=== PATIENT | female | born 1990 | race Hispanic/Latino ===

== ENCOUNTER 2020-01-25 12:18 | Outpatient (CLI) | payer OTHER ==
[2020-01-26 13:18] LABS: SARS-CoV-2 MS2 Positive; SARS-CoV-2 N Gene Positive; SARS-CoV-2 S Gene Positive; SARS-CoV-2 orf1ab Positive
== END 2020-01-25 12:19 | disposition home or self-care (01) ==
LOC: SCSLAB 12:18
PROVIDERS: ATTEND Family Medicine
DX: Z01.812 Encounter for preprocedural laboratory examination (principal); Z11.59 Encounter for screening for other viral diseases
CPT/HCPCS: 87635; U0003

== ENCOUNTER 2020-01-28 12:11 | Inpatient (IN) | payer MEDICAID, OTHER ==
[~2020-01-28 12:11] MED LIST: Bupivacaine/Epinephrine 0.25% 30 ML VIAL ONE
[2020-01-28] MEDS ORDERED: Ondansetron PF 4 MG/2 ML Vial IVP PRN (20:50)
[2020-01-28] MEDS ORDERED: Promethazine HCl 25 MG/ML VIAL IM PRN (20:50)
[2020-01-28] MEDS ORDERED: Lidocaine 1% (PF) 30 ML VIAL SC PRN (20:50)
[2020-01-28] MEDS ORDERED: Misoprostol 200 MCG TAB PR PRN (20:50)
[2020-01-28] MEDS ORDERED: NS w/ Oxytocin 10 units 500 ML IV SCH (20:50)
[2020-01-28] MEDS ORDERED: Methylergonovine 0.2 MG/ML VIAL IM PRN (20:50)
[2020-01-28] MEDS ORDERED: HYDROcodone/Acetaminophen 5/325 mg Tablet PO PRN (20:50)
[2020-01-28] MEDS ORDERED: Carboprost 250 MCG/ML AMP IM PRN (20:50)
[2020-01-28] MEDS ORDERED: NS / Oxytocin 40 units/1000ml 1,000 ML IV PRN (20:50)
[2020-01-28] MEDS ORDERED: hydrALAZINE 20 MG/ML VIAL SLOW IVP PRN (20:50)
[2020-01-28] MEDS ORDERED: Diphenoxylate HCl/Atropine Tablet PO PRN (20:50)
[2020-01-28] MEDS ORDERED: Ibuprofen 800 MG TAB PO PRN (20:50)
[2020-01-28] MEDS ORDERED: Penicillin G Potassium 5 MILL.UNITS in Sodium Chloride 0.9% 100 ML IVPB SCH (21:00)
[2020-01-28] MEDS ORDERED: Penicillin G Potassium 5 MILL.UNITS VIAL ONE (21:09)
[2020-01-28] MEDS ORDERED: Sodium Chloride 0.9% 100 ML ONE (21:10)
[2020-01-28 21:38] VITALS: BMI 35.5
[2020-01-28] MEDS: Lactated Ringer's 1,000 ML IV SCH (21:50)
[2020-01-28] MEDS: Misoprostol 100 MCG TAB VAG SCH (22:05)
[2020-01-28 22:24] LABS: Hemoglobin 12.5 g/dL (12.0-16.0); Mean Corpuscular Hemoglobin 31.1 pg (27.0-31.0); Mean Corpuscular Volume 91.4 fL (78.0-98.0); Mean Platelet Volume 11.4 fL (7.4-10.4); Platelet Count 119 thou/uL (130-400); RBC Distribution Width 12.2 % (11.5-14.5); Red Blood Cell (RBC) Count 4.02 mill/uL (4.20-5.40); White Blood Cell (WBC) Count 9.6 thou/uL (4.8-10.8)
[2020-01-28 22:46] LABS: Syphilis Antibody Nonreactive (Nonreactive); Syphilis Antibody Index 0.02 S/CO (<1.00 Non-Reactive)
[2020-01-28 23:27] LABS: HBSAg Index 0.15 S/CO (0-0.99); Hep B Surf Ag Non-Reactive S/CO (NonReactive)
[2020-01-28] MEDS: Penicillin G 2.5 MILL.units 2.5 MILL.UNITS in Premix Bag 1 BAG IVPB SCH (23:47)
[2020-01-28] MEDS: NS w/ Oxytocin 10 units 500 ML IV SCH (23:47)
[2020-01-28] MEDS: Butorphanol Tartrate 1 MG/ML VIAL SLOW IVP PRN (23:50)
[2020-01-29] MEDS: Penicillin G 2.5 MILL.units 2.5 MILL.UNITS in Premix Bag 1 BAG IVPB SCH ×4 (01:50→14:50)
[2020-01-29] MEDS: Butorphanol Tartrate 1 MG/ML VIAL SLOW IVP PRN ×2 (02:40→04:45)
[2020-01-29] MEDS: Lactated Ringer's 1,000 ML IV SCH ×2 (04:45→10:19)
[2020-01-29] MEDS: Misoprostol 100 MCG TAB VAG SCH ×2 (05:09→14:32)
[2020-01-29] MEDS ORDERED: Fentanyl 4 mcg/Bup 0.1% Cadd 100 ML ONE ×2 (06:17→13:28)
[2020-01-29] MEDS: Fentanyl 4 mcg/Bupivacaine 0.1% Cassette 100 ML EPIDURAL SCH ×2 (07:22→13:43)
[2020-01-29] MEDS ORDERED: diphenhydrAMINE 50 MG/ML VIAL IVP PRN ×2 (07:42→19:53)
[2020-01-29] MEDS ORDERED: Ondansetron PF 4 MG/2 ML Vial IVP PRN ×3 (07:42→22:33)
[2020-01-29] MEDS ORDERED: Naloxone HCl 0.4 mg/ml Vial IVP PRN ×4 (07:42→19:53)
[2020-01-29] MEDS ORDERED: Acetaminophen 325 MG TAB PO PRN (07:42)
[2020-01-29] MEDS ORDERED: Lactated Ringer's 500 ML IV PRN (07:42)
[2020-01-29] MEDS ORDERED: EPHEDRINE 25 MG/5 ML SYRINGE SLOW IVP PRN (07:42)
[2020-01-29] MEDS ORDERED: Promethazine HCl 25 MG/ML VIAL IM PRN ×3 (07:42→22:33)
[2020-01-29] MEDS ORDERED: Communication Order-Pharmacy FS SCH ×2 (07:45→20:00)
[2020-01-29] MEDS ORDERED: Fentanyl 100 MCG/2 ML VIAL ONE ×2 (13:53→19:18)
[2020-01-29] MEDS ORDERED: Bicitra 30 ML UDCUP ONE (18:00)
[2020-01-29] MEDS ORDERED: MORPHINE 5 MG/10 ML PF VIAL ONE (18:21)
[2020-01-29] MEDS ORDERED: Oxytocin 10 UNITS/ML VIAL ONE (18:21)
[2020-01-29] MEDS ORDERED: Bupivacaine PF 0.5% 30 ML VIAL ONE (18:21)
[2020-01-29] MEDS ORDERED: Lidocaine 2% 10 ML INJ ONE ×2 (18:21→19:07)
[2020-01-29] MEDS ORDERED: Ketorolac Tromethamine 30 MG/ML VIAL ONE (18:21)
[2020-01-29] MEDS ORDERED: Azithromycin 500 MG VIAL ONE (19:01)
[2020-01-29] MEDS ORDERED: Ketamine 50 MG/ML (10ML VIAL) ONE (19:08)
[2020-01-29] MEDS ORDERED: Midazolam HCl 2 mg/2 ml Vial ONE (19:09)
[2020-01-29] MEDS ORDERED: HYDROmorphone 2 MG/ML VIAL SLOW IVP PRN (19:53)
[2020-01-29] MEDS ORDERED: Promethazine HCl 25 MG SUPP PR PRN (19:53)
[2020-01-29] MEDS ORDERED: L&D-Morphine 4 MG/ML VIAL SLOW IVP PRN (19:53)
[2020-01-29] MEDS ORDERED: Naloxone HCl 0.4 mg/ml Vial IV PRN (19:53)
[2020-01-29] MEDS ORDERED: Ketorolac Tromethamine 30 MG/ML VIAL IVP PRN (19:53)
[2020-01-29] MEDS ORDERED: Ondansetron HCl/PF 4 MG/2 ML Vial IVP PRN (19:53)
[2020-01-29] MEDS ORDERED: Meperidine HCl/PF 25 MG/ML VIAL SLOW IVP PRN (19:53)
[2020-01-29] MEDS ORDERED: Ketorolac Tromethamine 30 MG/ML VIAL IVP SCH (20:00)
[2020-01-29] MEDS ORDERED: Lanolin Ointment 7 GM TUBE TOP PRN (22:33)
[2020-01-29] MEDS ORDERED: hydrALAZINE 20 MG/ML VIAL SLOW IVP PRN (22:33)
[2020-01-29] MEDS ORDERED: Acetaminophen 500 MG TAB PO PRN (22:33)
[2020-01-29] MEDS ORDERED: diphenhydrAMINE 25 MG CAP PO PRN (22:33)
[2020-01-29] MEDS ORDERED: Bisacodyl 10 MG SUPP PR PRN (22:33)
[2020-01-29] MEDS ORDERED: Misoprostol 200 MCG TAB PR PRN (22:33)
[2020-01-29] MEDS ORDERED: NS / Oxytocin 40 units/1000ml 1,000 ML IV SCH (22:33)
--- NOTE | 2020-01-30 | OP ---
DATE OF PROCEDURE: 01/29/2020 RESIDENT: Noe Bhatt DO. [employer] PAYABLE MANAGER SURGEON: Noe Bhatt DO. ATTENDING: Ike Gudino MD. PROCEDURE: Primary low transverse section. PREOPERATIVE DIAGNOSES: 1. Term intrauterine . 2. Failure to progress. 3. COVID 19 positive. 4. GBS Positive POSTOPERATIVE DIAGNOSES: 1. Term intrauterine . 2. Failure to progress. 3. COVID 19 positive. 4. GBS Positive ANESTHESIA: Epidural INDICATIONS: This patient is a 29-year-old G1, P0 female at 40 weeks gestation who presented for induction of labor and subsequently failed to progress. PROCEDURE IN DETAIL: After risks, benefits, and alternatives were explained to the patient. She gave informed consent. Preoperative antibiotics included cefazolin 2 g IV, azithromycin 500 mg IV. The patient was taken to the operating room. She was placed in the supine position with a left tilt and prepped and draped in the usual sterile fashion. A Pfannenstiel incision was made with a scalpel and carried down to the level of the fascia, which was sharply nicked. The fascial cut was extended bilaterally with Calvillo scissors. The inferior and superior edges of the cut fascial edges were elevated with Saundra clamps and the underlying rectus muscles were sharply and bluntly dissected free. The recti were divided digitally and retracted manually. The peritoneum was entered bluntly and retracted manually. Bladder blade was placed. A low transverse score was made with a scalpel. The uterus was entered in the midline with the scalpel. Clear fluid was seen. The hysterotomy was extended manually. The infant was noted to be vertex and was easily delivered by fundal pressure. Mouth and nares were bulb suctioned. Cord clamped after 30 seconds, then cut and a grossly normal female was handed to awaiting nurse. Cord blood was obtained. Placenta was manually extracted, found to be intact and sent to the lab. The uterus was externalized and the endometrium was curetted with a dry lap. The bladder blade was replaced and the uterus was closed with a running locking 1 monofilament suture. Following this, hemostasis was noted. Seprafilm was applied to uterus. The abdomen was irrigated with saline and suctioned free of clots. The uterus was internalized and the hysterotomy was again noted to be hemostatic. The peritoneum was closed with 3-0 Vicryl. The fascia was closed with a running nonlocking 0 PDS suture. The subcutaneous tissue was irrigated and there were no bleeders. The subcutaneous was closed with 3-0 Vicryl. The skin was then approximated with luly and a pressure dressing was placed. All counts were correct. The patient tolerated the procedure well and was taken to her room in stable condition. QUANTITATIVE BLOOD LOSS: 860 mL. COMPLICATIONS: None. SPECIMENS: Cord blood sent to lab for blood type. FINDING: Grossly normal female infant with Apgars of 8, 7 and 8 at one, five and ten minutes respectively. Grossly normal placenta was sent to the lab. DRAINS: Nielson intact. Job ID: [id number]
[2020-01-30] MEDS ORDERED: CEFAZOLIN 2 GM in Premix Bag 1 BAG IVPB SCH (04:00)
[2020-01-30] MEDS: Ketorolac Tromethamine 30 MG/ML VIAL IVP SCH ×3 (04:05→14:25)
[2020-01-30] MEDS: Simethicone Chewable 80 MG TAB PO PRN ×2 (07:48→14:25)
[2020-01-30] MEDS ORDERED: Meperidine HCl/PF 25 MG/ML VIAL IM PRN (08:00)
[2020-01-30 08:40] LABS: Mean Corpuscular Hemoglobin 31.9 pg (27.0-31.0); Mean Corpuscular Volume 93.8 fL (78.0-98.0); Mean Platelet Volume 9.9 fL (7.4-10.4); Platelet Count 97 thou/uL (130-400); RBC Distribution Width 12.2 % (11.5-14.5); Red Blood Cell (RBC) Count 3.13 mill/uL (4.20-5.40); White Blood Cell (WBC) Count 11.4 thou/uL (4.8-10.8)
[2020-01-30 08:43] LABS: ALT (SGPT) 26 U/L (8-55); AST (SGOT) 32 U/L (5-34); Albumin 2.5 g/dL (3.5-5.0); Alkaline Phosphatase 93 U/L (40-110); Anion Gap 11 mmol/L (10-20); BUN (Urea Nitrogen) 7 mg/dL (7.0-18.7); Bilirubin, Total 0.2 mg/dL (0.2-1.2); Calc. Creatinine Clearance 188 mL/min (70-130); Calcium 7.5 mg/dL (7.8-10.44); Carbon Dioxide 19 mmol/L (22-29); Chloride 110 mmol/L (98-107); Estimated GFR-MDRD Greater than 90; Globulin 2.2 g/dL (2.4-3.5); Glucose 66 mg/dL (70-105); Protein, Total 4.7 g/dL (6.0-8.3); Sodium 136 mmol/L (136-145)
[2020-01-30] MEDS ORDERED: Adacel (T-DAP) 0.5 ML SYRINGE IM ONE (09:00)
[2020-01-30] MEDS: Docusate Calcium (SURFAK) 240 MG CAP PO SCH ×2 (09:33→20:39)
[2020-01-30] MEDS: Prenatal Vitamin 1 TAB PO SCH (09:33)
[2020-01-30] MEDS: Ferrous Sulfate 325 MG TAB PO SCH ×2 (09:33→20:39)
[2020-01-30] MEDS: Penicillin G 2.5 MILL.units 2.5 MILL.UNITS in Premix Bag 1 BAG IVPB SCH (13:55)
[2020-01-30] MEDS: Lactated Ringer's 1,000 ML IV SCH (13:56)
[2020-01-30] MEDS: NS w/ Oxytocin 10 units 500 ML IV SCH (13:56)
[2020-01-30] MEDS: HYDROcodone/Acetaminophen 5/325 mg Tablet PO PRN ×2 (16:57→20:39)
[2020-01-30] MEDS: Ibuprofen 800 MG TAB PO SCH (20:40)
[2020-01-31] MEDS: HYDROcodone/Acetaminophen 5/325 mg Tablet PO PRN ×5 (01:01→22:59)
[2020-01-31] MEDS: Ibuprofen 800 MG TAB PO SCH ×3 (06:19→21:47)
[2020-01-31] MEDS: Prenatal Vitamin 1 TAB PO SCH (08:16)
[2020-01-31] MEDS: Docusate Calcium (SURFAK) 240 MG CAP PO SCH ×2 (08:16→21:47)
[2020-01-31] MEDS: Ferrous Sulfate 325 MG TAB PO SCH ×2 (17:22→23:00)
[2020-01-31] MEDS: Simethicone Chewable 80 MG TAB PO PRN (21:47)
[2020-02-01] MEDS: HYDROcodone/Acetaminophen 5/325 mg Tablet PO PRN ×3 (05:39→13:28)
[2020-02-01] MEDS: Ibuprofen 800 MG TAB PO SCH ×2 (05:39→13:28)
[2020-02-01] MEDS: Prenatal Vitamin 1 TAB PO SCH (07:33)
[2020-02-01] MEDS: Docusate Calcium (SURFAK) 240 MG CAP PO SCH (07:34)
[2020-02-01] MEDS: Ferrous Sulfate 325 MG TAB PO SCH (07:34)
[2020-02-01] MEDS: Simethicone Chewable 80 MG TAB PO PRN (07:42)
[2020-02-01 09:03] VITALS: BP 130/60; TEMP 98.5
[2020-02-02 12:24] LABS: SARS-CoV-2 MS2 Positive; SARS-CoV-2 N Gene Positive; SARS-CoV-2 S Gene Positive; SARS-CoV-2 orf1ab Positive
== END 2020-02-01 14:00 | disposition home or self-care (01) | DRG 786 ==
LOC: L&D 20:29 → 3SW 01-31 10:43
PROVIDERS: ADMIT Family Medicine; ATTEND Family Medicine
PROC: 10D00Z1 Extraction of Products of Conception, Low, Open Approach (ICD-10-PCS; principal; 2020-01-29)
PROC: 10907ZC Drainage of Amniotic Fluid, Therapeutic from Products of Conception, Via Natural or Artificial Opening (ICD-10-PCS; 2020-01-29)
PROC: 3E033VJ Introduction of Other Hormone into Peripheral Vein, Percutaneous Approach (ICD-10-PCS; 2020-01-29)
DX: O62.0 Primary inadequate contractions (principal); U07.1 COVID-19; O98.52 Other viral diseases complicating childbirth; Z3A.40 40 weeks gestation of pregnancy; Z37.0 Single live birth; O99.824 Streptococcus B carrier state complicating childbirth; O99.02 Anemia complicating childbirth; D64.9 Anemia, unspecified; O77.0 Labor and delivery complicated by meconium in amniotic fluid
CPT/HCPCS: 36415; 51702; 80053; 85027; 86780; 86850; 86900; 86901; 87340; 87635; 88307; J0456; J0595; J0690; J1885; J2001; J2250; J2274; J2405; J2540; J2590; J3010; J3490; S0020; U0003